=== PATIENT | female | born 1965 | race Caucasian/White ===

== ENCOUNTER 2016-11-02 16:16 | Inpatient (IN) | payer BC ==
--- NOTE | ~2016-11-02 | DS ---
Discharge Summary [facility] [address] [place]. [address] NAME: DEO HEDRICK : 63 STATUS : DIS IN PAT#: [id number] AGE: 51 ADM/REG DATE : 11/02/16 MR#: [id number] REPORT SERV DATE: 11/04/16 DICTATED BY: SANDRO VALENCIA DATE: 11/04/16 REPORT STATUS : Draft TRANSCRIBED BY: MODL DATE: 11/04/16 ADMISSION DATE: 11/02/2016 DISCHARGE DATE: 11/04/2016 DISCHARGE DIAGNOSES: 1. Cerebral edema due to brain metastasis, a 1 cm midline shift. 2. Metastatic breast cancer. 3. Urinary tract infection, positive Klebsiella. 4. Gait abnormalities. 5. Headache due to #1, improving. 6. Decreased oral intake. 7. Anxiety. IMAGIN. CT brain, 11/02/2016. Impression: Increased edema in both hemispheres. However, there is now a definite ventricular shift, approximately almost 1 cm, not seen in September. There is no evidence of any hemorrhagic complications at this time. The fourth ventricle was already compromised on the prior exam. 2. Chest x-ray, 11/02/2016. Impression: Right pleural-based masses similar to the recent CT. Shallow inspiration with bibasilar discoid atelectasis. 3. MRI of the brain, 11/03/2016. Impression: Progression of disease. The previously documented metastases are increasing in size with increase in localized mass effect. Definite [id number] ventricular shift. Subtle increase in already compromised changes seen in the posterior fossa, fourth ventricle. LABORATORY DATA: Urinary culture, positive Klebsiella. HOSPITAL STAY: Please refer to history and physical dictated by Dr. Barron Chapman on 11/02/2016 for complete admission details. This patient is a 51-year-old female, who presented in [facility]'s Emergency Room with complaints of increase in headache and gait abnormality. She does present with a history of stage IV metastatic breast cancer with known brain metastasis. She is under the care of Dr. Rocha and Dr. Manzano. The patient described headache as dull, achy headache but ongoing, rating it from a scale of 1 to 10. She did state that she had some visual changes at home. The patient was admitted to the hospital. 1. Cerebral edema due to brain metastasis. As noted above, the imaging was obtained, which showed a 1 cm midline shift. The patient was evaluated again by Dr. Rocha and Dr. Manzano. No further chemo or radiation to be offered due to progression of disease. 2. Metastatic breast cancer, followed by Dr. Manzano. The patient and spouse had a long discussion regarding treatment options. At this time, no further treatments are available for the patient. Best plan of care is for the patient to be transitioned to hospice care. The patient has chosen [facility], to which she will be discharged this afternoon. 3. Urinary tract infection. Positive Klebsiella. [facility] was informed Discharge Summary [address] [place]. [address] NAME: DEO HEDRICK : 63 STATUS : DIS IN [facility]#: [id number] AGE: 51 ADM/REG DATE : 11/02/16 MR#: [id number] REPORT SERV DATE: 11/04/16 DICTATED BY: SANDRO VALENCIA DATE: 11/04/16 REPORT STATUS : Draft TRANSCRIBED BY: ANDRE DATE: 11/04/16 regarding the urine culture. Antibiotic of choice per hospice. 4. Gait abnormalities. The patient has been unable to ambulate due to progression of disease. 5. Headache due to #1. As stated improving with current medications. 6. Decreased oral intake. The patient has been provided Ensure with each meal, has been able to tolerate some oral intake. 7. Anxiety. The patient has had complaints of anxiety due to current situation/diagnosis. Ativan was added p.r.n. as needed. The patient is being discharged with [facility] to assume care. The patient's daughter is involved at this time with the patient's care. She will be discharged home to her daughter's house with [facility]. Discharge MAR per [facility]. This discharge took greater than 30 minutes. DARÍO/ANDRE Sandro Valencia NP / [id number]
--- NOTE | ~2016-11-02 | CONSULT ---
Radiation Oncology Consult [facility] [id number] [place]. [address] NAME: DEO WASHINGTON : 63 STATUS : DIS IN PAT#: [id number] AGE: 51 ADM/REG DATE : 11/02/16 MR#: [id number] REPORT SERV DATE: 11/06/16 DICTATED BY: VIN ROCHA DATE: 11/04/16 REPORT STATUS : Draft TRANSCRIBED BY: ANDRE DATE: 11/04/16 RADIATION ONCOLOGY CONSULTATION HISTORY OF PRESENT ILLNESS: Ms. Washington is a 51-year-old white female with widely metastatic breast cancer who is only two months since completing a whole-brain radiation therapy for multiple large brain metastases. Her first MRI in September revealed no significant change in the metastases. This last week, she has been noted to become more forgetful. She has been falling and complaining of headaches. She was seen by Dr. Nunes yesterday and sent to the emergency room for suspected increased cerebral edema. CT of the brain once again confirmed the presence of brain metastases. She now had significant cerebral edema with a 1 cm midline shift. She was started on Decadron with quick improvement in some of her symptoms. Radiation Oncology was then consulted to see if she is a candidate for any additional treatment. It is noted that her lung nodules have progressed as well. In consultation today, Ms. Washington has complaint of left headache. Her memory is somewhat improved and her speech is appropriate. MEDICATIONS: Reviewed and recorded. ALLERGIES: NOTED. PAST MEDICAL HISTORY: Reviewed. FAMILY HISTORY: Reviewed. SOCIAL HISTORY: Reviewed. REVIEW OF SYSTEMS: An extended review of systems was performed. PHYSICAL FINDINGS: GENERAL: Exam reveals a somewhat cushingoid and alopecic middle-aged white female, who is very tearful and anxious. NECK: There is no obvious supraclavicular lymphadenopathy. PSYCHIATRIC: The patient is very anxious. NEUROLOGIC: A detailed neurologic exam was not performed. X-RAYS: An MRI was ordered for better documentation of disease progression. I have reviewed the scan and it appears that six or seven metastatic lesions have progressed in short interval. Two other lesions approach 4 cm in diameter. IMPRESSION: Progressive brain metastases within a very short interval from whole-brain radiation therapy. RECOMMENDATIONS: I had hoped that the whole-brain radiation therapy would produce enough response that any residual tumors could be boosted with SRS. Clearly, these are aggressive brain lesions, which have grown despite whole-brain radiation therapy. I, therefore, have Radiation Oncology Consult [address] [place]. [address] NAME: DEO WASHINGTON : 63 STATUS : DIS IN PAT#: [id number] AGE: 51 ADM/REG DATE : 11/02/16 MR#: [id number] REPORT SERV DATE: 11/06/16 DICTATED BY: VIN ROCHA DATE: 11/04/16 REPORT STATUS : Draft TRANSCRIBED BY: MODL DATE: 11/04/16 no reasonable radiation therapy treatment options for Ms. Washington. Considering this and progression of disease on other fronts, that is resistant to chemotherapy, I suggest that we transition to comfort care through hospice. This would include continuing her steroid and providing home health for this on terminal stage cancer. Ms. Washington was very disturbed by my recommendation. Her daughter, however, was quite relieved and seems to have a good grasp on the situation. We have, therefore, consulted hospice to help with home care for the remainder of Ms. Washington's life. EE/MODL Vin Rocha M.D. / [id number] CC: MD Des Quintanilla IV, M.D. Mark S Womack IV, M.D. [facility]
--- NOTE | ~2016-11-02 | HP ---
History And Physical [facility] [id number] [place]. [address] NAME: DEO HEDRICK : 63 STATUS : REG ER PAT#: [id number] AGE: 51 ADM/REG DATE : 11/02/16 MR#: [id number] REPORT SERV DATE: 11/02/16 DICTATED BY: ELSIE CHAPMAN DATE: 11/02/16 REPORT STATUS : Draft TRANSCRIBED BY: ANDRE DATE: 11/02/16 DATE OF ADMISSION: 11/02/2016 CHIEF COMPLAINT: Headache and gait abnormality. HISTORY OF PRESENT ILLNESS: This is a patient with known stage IV metastatic breast cancer with known brain metastasis. She follows with Dr. Rocha and Dr. Nunes as an outpatient. Her is at the bedside and he reports that for about the past 6 days, she has had issues intermittently with headache. The patient describes as a dull achy headache. When asked on what it is on scale from 1 to 10, she just says it hurts. She says it is dull in character and comes and goes. Her pain medication at home has not helped this pain. also noted she had decreased p.o. intake intermittently and some stomach upset. She denies any shortness of breath or chest pain. She does report, maybe some subjective fever at home although her says they did not measure it and she says she thinks the fever is a little probably maybe 100. She denies any dysuria or diarrhea. Her says she has had intermittent confusion but can't further elaborate. is very anxious at the bedside. PAST MEDICAL HISTORY: Chronic anxiety and stage IV breast cancer. ALLERGIES: INCLUDE CODEINE AND PENICILLIN. MEDICATIONS: List is pending at this time. FAMILY HISTORY: Negative for breast cancer. REVIEW OF SYSTEMS: Full review of system was obtained and is negative with the exception of above HPI. PHYSICAL EXAMINATION: VITAL SIGNS: Temperature 97.4, pulse of 125, blood pressure 124/63, respiratory rate of 18, and saturating 97% on room air. GENERAL: This is a pleasant female, who is in no acute distress. HEENT: Extraocular muscles are intact. Sclerae are anicteric. Pupils are equal, round, and reactive to light. Speech is fluent. NECK: Supple. LUNGS: Clear to auscultation bilaterally without any wheezes, rales, or rhonchi. CARDIAC: Exam is slightly tachycardic although regular. ABDOMEN: Soft, nontender, and nondistended. EXTREMITIES: Lower extremities are warm and well perfused with no edema. SKIN: Warm, dry, and intact. No rashes noted. NEUROLOGIC: Cranial nerves 2 through 12 are grossly intact. Face is symmetric. Tongue is midline. Speech is fluent. LABORATORY DATA: CBC: White blood cell count 12.1, hemoglobin 12.7, and platelet count of 230. BMP grossly unremarkable. History And Physical [address] [address] NAME: DEO HEDRICK : 63 STATUS : REG ER PAT#: [id number] AGE: 51 ADM/REG DATE : 11/02/16 MR#: [id number] REPORT SERV DATE: 11/02/16 DICTATED BY: ELSIE CHAPMAN DATE: 11/02/16 REPORT STATUS : Draft TRANSCRIBED BY: ANDRE DATE: 11/02/16 IMAGING: CT of the brain without contrast showed impression: 1. Increasing edema in both hemispheres. However there is now a definite ventricular shift approximating almost 1 cm, not seen in September. There is no evidence of hemorrhagic complications at this time. 2. The 4th ventricle has already compressed on the prior exam, slightly more mass effect appreciated now. ASSESSMENT AND PLAN: This is a 51-year-old female with metastatic breast cancer presenting with symptoms of increased intracranial pressure. 1. Cerebral edema due to brain metastases with 1 cm midline shift. The patient will be admitted to the hospital. She will be given neuro checks. In addition she will be placed on IV steroids. A 10 mg of IV Decadron has been ordered in the emergency room. We will consult her Radiation oncologist, Dr. Rocha in addition to her medical oncologist Dr. Nunes to follow along with us. 2. Metastatic breast cancer. Dr. Nunes will be consulted. Again discussed her further plans for chemotherapy. 3. Gait abnormalities. This is likely due to cerebral edema. We will have PT see her while she is here to ensure that she has appropriate safe discharge plan. 4. Headache likely due to elevated intracranial pressure. We will continue analgesia as well as steroids as mentioned above. 5. Poor p.o. intake. The patient does not have any mucositis. We will give her regular diet and monitor for improvement in her symptoms once her intracranial pressure is improved. 6. DVT prophylaxis will be with enoxaparin. Code status at this time, the patient is unable to answer due to mild confusion and is very anxious. We will wait for Dr. Nunes and have this discussion at a later time. PHOEBE/ANDRE Elsie Chapman MD / [id number] CC: Des Nunes IV, M.D.
[2016-11-02 14:15] LABS: BASOPHILS 0.1 %; BASOPHILS ABSOLUTE 0.01 10/3/uL (0.0-0.16); EOSINOPHILS 0.1 %; EOSINOPHILS ABSOLUTE 0.01 10/3/uL (0.0-0.53); ER CBC TAT 0 Hrs 00 Mins; HEMATOCRIT 38.8 % (36.0-48.0); HEMOGLOBIN 12.7 g/dL (12.0-16.0); IMMATURE GRANULOCYTES 0.2 %; IMMATURE GRANULOCYTES ABSOLUTE 0.03 10/3/uL (0.0-0.11); LYMPHOCYTES 12.4 %; MEAN CORPUS HGB CONC 32.7 g/dL (32.0-36.0); MEAN CORPUSCULAR HEMOGLOB 32.7 pg (26.0-34.0); MEAN PLATELET VOLUME 9.5 fL (9.2-13.0); MONOCYTES 5.8 %; NEUTROPHILS 81.4 %; NEUTROPHILS ABSOLUTE 9.88 10/3/uL (2.02-8.40); PLATELET COUNT 230 10/3/uL (150-400); RBC DISTRIBUTION WIDTH 14.4 % (12.0-16.0); RED CELL COUNT 3.88 10/6/uL (4.0-5.6)
[2016-11-02 14:16] LABS: MANUAL DIFF NO %; WHITE BLOOD CELLS 12.1 10/3/uL (4.5-10.5)
[2016-11-02 14:33] LABS: A/G RATIO 0.8 (0.7-1.9); ALBUMIN 3.2 G/DL (3.5-5.0); ALKALINE PHOSPHATASE 74 U/L (45-117); BUN (BLOOD UREA NITROGEN) 9 MG/DL (6-23); CALCIUM, SERUM 9.3 MG/DL (8.5-10.4); CHLORIDE, SERUM 106 MMOL/L (96-112); CO2 (CARBON DIOXIDE) 20 MMOL/L (24-34); CREATININE 0.72 MG/DL (0.55-1.02); GFR AFRICAN AMERICAN 112 ML/MIN (>=60); GFR NON AFRICAN AMERICAN 96 ML/MIN (>=60); GLOBULIN 3.8 G/DL (2.5-4.1); GLUCOSE, SERUM 84 MG/DL (60-99); POTASSIUM, SERUM 3.8 MMOL/L (3.5-5.3); SGOT(AST) 15 U/L (5-40); SGPT(ALT) 15 U/L (5-65); SODIUM, SERUM 142 MMOL/L (135-148); TOTAL BILIRUBIN 0.5 MG/DL (0-1.2)
[~2016-11-02 16:16] MED LIST: ACET500CAP PO; ALEVE220 MG PO; FEMARA PO; KLONO5 PO; LORT7 PO; LYRICA300 MG PO; MULTIVIT/MIN PO; PCET PO; T PO; ULTRAM50 PO; WELLXL150 PO; X5 PO; XANAX1 MG PO; [UNRECOGNIZED DRUG - REMARK] PO
[2016-11-02 16:45] LABS: ASCORBIC ACID (UR NOT ORDER) NEG (NEG); BILIRUBIN, URINE NEGATIVE (NEG); ER URINALYSIS TAT 0 Hrs 11 Mins; KETONE, URINE 80 MG/DL (NEG); LEUKOCYTE ESTERASE(NOT OR LARGE (NEG); NITRITE (URINE) POS (NEG); WBC (NOT ORDERED) (RFLEX) 173 (0-5)
[2016-11-02] MEDS ORDERED: ZOFRAN8 PO (16:56)
[2016-11-02] MEDS ORDERED: MCZ25 PO (16:56)
[2016-11-02] MEDS ORDERED: NORCO1 TA1 PO (16:56)
[2016-11-02] MEDS ORDERED: PR25 PO (16:57)
[2016-11-02] MEDS ORDERED: HAIR PO (16:57)
[2016-11-02] MEDS ORDERED: SKIN PO (16:57)
[2016-11-02] MEDS ORDERED: LETROZOLE PO (16:58)
[2016-11-03 05:15] LABS: BASOPHILS 0 %; BUN (BLOOD UREA NITROGEN) 6 MG/DL (6-23); CALCIUM, SERUM 9.1 MG/DL (8.5-10.4); CHLORIDE, SERUM 109 MMOL/L (96-112); CO2 (CARBON DIOXIDE) 18 MMOL/L (24-34); CREATININE 0.66 MG/DL (0.55-1.02); EOSINOPHILS 0 %; GFR AFRICAN AMERICAN 118 ML/MIN (>=60); GFR NON AFRICAN AMERICAN 102 ML/MIN (>=60); HEMATOCRIT 36.8 % (36.0-48.0); HEMOGLOBIN 11.9 g/dL (12.0-16.0); IMMATURE GRANULOCYTES 0.3 %; IMMATURE GRANULOCYTES ABSOLUTE 0.02 10/3/uL (0.0-0.11); LYMPHOCYTES 16.7 %; LYMPHOCYTES ABSOLUTE 1.03 10/3/uL (0.67-4.30); MEAN CORPUS HGB CONC 32.3 g/dL (32.0-36.0); MEAN CORPUSCULAR HEMOGLOB 32.2 pg (26.0-34.0); MEAN CORPUSCULAR VOLUME 99.7 fL (80-100); MEAN PLATELET VOLUME 9.6 fL (9.2-13.0); MONOCYTES ABSOLUTE 0.06 10/3/uL (0.21-1.20); NEUTROPHILS ABSOLUTE 5.04 10/3/uL (2.02-8.40); PLATELET COUNT 233 10/3/uL (150-400); POTASSIUM, SERUM 4.1 MMOL/L (3.5-5.3); RBC DISTRIBUTION WIDTH 14.5 % (12.0-16.0); RED CELL COUNT 3.69 10/6/uL (4.0-5.6); SODIUM, SERUM 144 MMOL/L (135-148)
[2016-11-03 05:23] LABS: GLUCOSE, SERUM 138 MG/DL (60-99)
[2016-11-03 05:29] LABS: MANUAL DIFF NO %; WHITE BLOOD CELLS 6.2 10/3/uL (4.5-10.5)
[2016-11-04] MEDS ORDERED: . (11:15)
== END 2016-11-04 11:25 | disposition hospice, home (50) | DRG 54 ==
LOC: ER 16:16 → 4EA 17:19
PROVIDERS: Emergency Medicine; Internal Medicine
DX: C79.31 Secondary malignant neoplasm of brain (principal); G93.6 Cerebral edema; C50.919 Malignant neoplasm of unspecified site of unspecified female breast; N39.0 Urinary tract infection, site not specified; B96.1 Klebsiella pneumoniae [K. pneumoniae] as the cause of diseases classified elsewhere; F41.9 Anxiety disorder, unspecified
CPT/HCPCS: 70450; 70553; 71010; 80048; 80053; 81001; 82962; 83605; 83690; 85025; 87040; 87077; 87086; 87186; 99285; A9270-GY; A9577; J1170